=== PATIENT | female | born 1980 | race Caucasian/White ===

== ENCOUNTER 2016-12-29 20:40 | Emergency (ER) | payer OTHER ==
[2016-12-29 20:46] VITALS: BP 133/91
[2016-12-29] MEDS ORDERED: HYDROcod/ACET 5/325 Prepack 6 PO STA (20:58)
[2016-12-29] MEDS ORDERED: AMOX/CLAV 875 MG/125 MG TABLET PO STA (20:58)
[2016-12-29] MEDS ORDERED: AMOX/CLAV 875 MG/125 MG TABLET PO ONE (21:01)
[2016-12-29] MEDS ORDERED: HYDROcod/ACET 5/325 Prepack 6 PO ONE (21:01)
--- NOTE | 2016-12-29 21:42 | ED Physician Documentation ---
PD HPI HEENT - Stated complaint Stated Complaint: FACE PX - Chief complaint Chief Complaint: Heent - History obtained from History obtained from: Patient - History of Present Illness Timing - onset: How many days ago (2) Timing - duration: Days (2) Timing - details: Gradual onset, Waxing and waning Location: Sinuses (right-sided, points to maxillary area) Improves: Nothing. No: Medication (inadequate relief with ibuprofen) Worsens: Other (no apparent exacerbating factors) Associated symptoms: Congestion, Other (right facial pain). No: Fever, Cough Similar symptoms before: Other (similar to previous sinusitis, with some qualities in common with previous ear infections) Recently seen: Not recently seen - Additional information Additional information: c/o gradually worsening right facial pain radiating to right upper teeth, inadequate relief with ibuprofen. c/o sinus congestion Review of Systems Constitutional: denies: Fever, Chills, Sweats Ears: reports: Ear pain (right ear discomfort) Nose: reports: Congestion, Sinus pressure / pain. 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: No Does the pt have substance abuse?: No - Immunizations Immunizations are current?: Yes - POLST Patient has POLST: No PD ED PE NORMAL - Vitals Vital signs reviewed: Yes - General General: Alert and oriented X 3, No acute distress, Well developed/nourished - HEENT HEENT: PERRL, EOMI, Ears normal, Moist mucous membranes, Pharynx benign - Neck Neck: Supple, no meningeal sign PD ED PE EXPANDED - HEENT HEENT: Right maxillary sinus TTP Results - Vitals Vitals: Vital Signs - 24 hr 12/29/16 20:44 Temperature 36.2 C L Heart Rate 77 Respiratory 16 Rate Blood Pressure 133/91 H O2 Saturation 99 Oxygen O2 Source Room air PD MEDICAL DECISION MAKING - ED course Complexity details: considered differential, d/w patient Departure - Departure Disposition: Home, Self Care Clinical Impression: Sinusitis Qualifiers: Sinusitis location: maxillary Chronicity: acute Recurrence: not specified as recurrent Qualified Code(s): J01.00 - Acute maxillary sinusitis, unspecified Condition: Good Instructions: ED Hypertension Poss, ED Sinusitis Abx Tx Follow-Up: Amanda Lee DO [Primary Care Provider] - (3-5 days if not improving) Prescriptions: Amox/Clav 875/125 [Augmentin] 1 each PO Q12H 7 Days HYDROcod/ACETAM 5/325 [Far[place]ault 5/325] 1 - 2 ea PO Q6H PRN #15 tablet PRN Reason: Pain Discharge Date/Time: 12/29/16 21:17
== END 2016-12-29 21:17 | disposition home or self-care (01) ==
LOC: ED 20:40
DX: J01.00 Acute maxillary sinusitis, unspecified (principal)
CPT/HCPCS: 99283; A9270

== ENCOUNTER 2017-07-14 08:00 | Outpatient (CLI) | payer OTHER ==
[2017-07-14 18:57] LABS: BASOPHILS % (AUTO) 0.3 %; EOSINOPHILS # (AUTO) 0.2 10^3/uL (0.0-0.7); EOSINOPHILS % (AUTO) 1.7 %; HGB - HEMOGLOBIN 13.1 g/dL (12.0-16.0); LYMPHOCYTES # (AUTO) 2.6 10^3/uL (1.5-3.5); LYMPHOCYTES % (AUTO) 20.3 %; MEAN CORPUSCULAR HEMOGLOBIN 28.9 pg (27.0-31.0); MEAN CORPUSCULAR HGB CONC 33.2 g/dL (32.0-36.0); MEAN PLATELET VOLUME 8.1 fL (7.9-10.8); MONOCYTES # (AUTO) 0.7 10^3/uL (0.0-1.0); MONOCYTES % (AUTO) 5.1 %; NEUTROPHILS # (AUTO) 9.3 10^3/uL (1.5-6.6); NEUTROPHILS % (AUTO) 72.6 %; PLT - PLATELET COUNT 315 10^3/uL (130-450); RED BLOOD COUNT 4.52 10^6/uL (4.20-5.40); RED CELL DISTRIBUTION WIDTH 13.6 % (12.0-15.0); WHITE BLOOD COUNT 12.8 x10^3/uL (4.8-10.8)
[2017-07-14 19:09] LABS: BILIRUBIN,URINE NEGATIVE (NEGATIVE); GLUCOSE, URINE (UA) NEGATIVE (NEGATIVE); KETONES,URINE (UA) NEGATIVE (NEGATIVE); LEUKOCYTE ESTERASE, URINE NEGATIVE (NEGATIVE); NITRITE,URINE NEGATIVE (NEGATIVE); OCCULT BLOOD,URINE NEGATIVE (NEGATIVE); PROTEIN,URINE NEGATIVE (NEGATIVE); UROBILINOGEN,URINE 0.2 (NORMAL) E.U./dL (NORMAL)
[2017-07-14 19:13] LABS: BACTERIA,URINE Rare /HPF (None Seen); CLARITY,URINE CLEAR (CLEAR); RBC,URINE 0-5 /HPF (0-5); SQUAMOUS EPITHELIAL CELL,UR FEW Squamous (<= Few)
== END 2017-07-14 08:01 | disposition home or self-care (01) ==
LOC: LAB.N 08:00
PROVIDERS: ATTEND Obstetrics & Gynecology
DX: N92.1 Excessive and frequent menstruation with irregular cycle (principal); Z11.3 Encounter for screening for infections with a predominantly sexual mode of transmission
CPT/HCPCS: 36415; 81001; 85025; 85651; 87491; 87591

== ENCOUNTER 2017-07-14 08:00 | Outpatient (CLI) | payer OTHER | END 2017-07-14 08:01 | disposition home or self-care (01) | LOC: LAB.R 08:00 | PROVIDERS: ATTEND Obstetrics & Gynecology | DX: Z11.3 Encounter for screening for infections with a predominantly sexual mode of transmission (principal) | CPT/HCPCS: 87491; 87591 ==

== ENCOUNTER 2017-07-18 12:07 | Outpatient (CLI) | payer OTHER ==
--- NOTE | 2017-07-18 15:01 | Ultrasound Report ---
DATE OF SERVICE: 07/18/2017 PELVIC ULTRASOUND: 07/18/2017 CLINICAL INDICATION: Pain. TECHNIQUE: Transabdominal pelvic ultrasound performed for global evaluation. Transvaginal pelvic ultrasound performed for detailed evaluation. Real-time scanning performed and static images obtained. FINDINGS: The uterus is anteverted, measuring 7.7 x 4.9 x 4.0 cm. The endometrial echo complex measures 6 mm. There is an anterior intramural leiomyoma, measuring 3.4 x 3.0 x 2.8 cm. The right ovary measures 2.8 x 1.9 x 1.9 cm, and is unremarkable. The left ovary measures 3.9 x 2.6 x 2.0 cm, and contains a follicle. A small amount of free fluid is present. IMPRESSION: INTRAMURAL LEIOMYOMA, MEASURING 3.4 CM. TD: 07/18/2017 14:52
== END 2017-07-18 12:08 | disposition home or self-care (01) ==
LOC: DI 12:07
PROVIDERS: ATTEND Obstetrics & Gynecology
DX: D25.1 Intramural leiomyoma of uterus (principal)
CPT/HCPCS: 76830; 76856

== ENCOUNTER 2017-08-22 12:28 | Outpatient (CLI) | payer OTHER ==
[2017-08-22 13:11] LABS: BASOPHILS % (AUTO) 0.5 %; BILIRUBIN,URINE NEGATIVE (NEGATIVE); EOSINOPHILS # (AUTO) 0.2 10^3/uL (0.0-0.7); GLUCOSE, URINE (UA) NEGATIVE (NEGATIVE); HGB - HEMOGLOBIN 12.5 g/dL (12.0-16.0); KETONES,URINE (UA) NEGATIVE (NEGATIVE); LEUKOCYTE ESTERASE, URINE NEGATIVE (NEGATIVE); LYMPHOCYTES # (AUTO) 2.7 10^3/uL (1.5-3.5); LYMPHOCYTES % (AUTO) 28.3 %; MEAN CORPUSCULAR HEMOGLOBIN 28.3 pg (27.0-31.0); MEAN CORPUSCULAR HGB CONC 33.6 g/dL (32.0-36.0); MEAN CORPUSCULAR VOLUME 84.5 fL (81.0-99.0); MEAN PLATELET VOLUME 7.5 fL (7.9-10.8); MONOCYTES # (AUTO) 0.5 10^3/uL (0.0-1.0); NEUTROPHILS # (AUTO) 6.2 10^3/uL (1.5-6.6); NEUTROPHILS % (AUTO) 64.2 %; NITRITE,URINE NEGATIVE (NEGATIVE); OCCULT BLOOD,URINE LARGE (NEGATIVE); PH,URINE 6.5 PH (5.0-7.5); PLT - PLATELET COUNT 314 10^3/uL (130-450); PROTEIN,URINE NEGATIVE (NEGATIVE); RED BLOOD COUNT 4.41 10^6/uL (4.20-5.40); RED CELL DISTRIBUTION WIDTH 13.2 % (12.0-15.0); UROBILINOGEN,URINE 0.2 (NORMAL) E.U./dL (NORMAL); WHITE BLOOD COUNT 9.6 x10^3/uL (4.8-10.8)
[2017-08-22 13:14] LABS: CLARITY,URINE CLEAR (CLEAR); HCG UR QUAL NEGATIVE
== END 2017-08-22 12:29 | disposition home or self-care (01) ==
LOC: LAB 12:28
PROVIDERS: ATTEND Obstetrics & Gynecology
DX: Z01.812 Encounter for preprocedural laboratory examination (principal); D25.9 Leiomyoma of uterus, unspecified; N92.1 Excessive and frequent menstruation with irregular cycle
CPT/HCPCS: 36415; 81003; 81025; 85025; 86850; 86900; 86901

== ENCOUNTER 2017-08-24 09:52 | Inpatient (IN) | payer OTHER ==
--- NOTE | 2017-08-22 16:39 | PREOP HISTORY & PHYSICAL ---
DATE OF SERVICE: 08/22/2017 Physician: Joseph Alvares MD ANTICIPATED DATE OF PROCEDURE: 08/24/2017 DIAGNOSES 1. Lower quadrant, pelvic, and scar pain. 2. Uterine leiomyomata. 3. sections x3. INTENDED PROCEDURES 1. Total abdominal or subtotal abdominal hysterectomy. 2. Bilateral salpingectomy. 3. Possible oophorectomy or bilateral oophorectomy. 4. Excision & revision of C/S scars. 5. Possible placement of Braydon-Mathias drain. HISTORY OF PRESENT ILLNESS: The patient is a 36-year-old multigravida (history of 3 sections) who reports 4-5 months of intense lower abdominal and pelvic pain grade 7/10. It is bilateral and radiates into the pelvis. She reports q.28-day menses with severe dysmenorrhea. The pain intensifies with movement, particularly twisting movement, bowel movement, and sexual intercourse. She notes scar pain on movement. She has attempted nonsteroidals without any effect. Pain compromises the quality of her life in that she cannot lift anything, and her sex life has suffered. When she has intercourse, "it is like my hit something solid." For many months, she has taken Motrin 800 three times a day. Her primary care is concerned about the renal effects of high dose Motrin. Ultrasound reveals a 3.4 cm myoma. Ovaries are normal size and contain normal cystic activity. There is a complex endometrial echo of 6 mm. The patient has nausea with her pain, but this is not associated with eating. She also feels urinary urgency and bladder pain. She states she is always aware of her bladder. The patient is not on any contraception. She has had normal Pap smears throughout her adult life. Last Pap was in 10/2016. PAST MEDICAL HISTORY: Some history of depression and anxiety, treated with clonazepam. The depression was triggered by a family . PAST SURGICAL HISTORY: sections in 2007, 2009, and 2011. Laparoscopic cholecystectomy. ALLERGIES: NONE. MEDICATIONS: Motrin 800. FAMILY HISTORY: Breast cancer in paternal grandmother, cervical cancer in paternal aunt, diabetes in paternal grandmother, depression in mother, hypertension in numerous maternal relatives, and hypercholesterolemia. REVIEW OF SYMPTOMS CONSTITUTIONAL: Negative. HEMATOLOGIC: Negative. CARDIOVASCULAR: Negative. PULMONARY: Mild dyspnea on exertion. GASTROINTESTINAL: Negative except abdominal pain on bowel movement. GYNECOLOGIC: Negative. GENITOURINARY: Negative. MUSCULOSKELETAL: Back pain. DERMATOLOGIC: Negative. BREASTS: Negative. NEUROLOGIC: Negative. PSYCHOLOGIC: Anxiety and depression as noted before. SOCIAL HISTORY: , [place] . No drug, tobacco, or alcohol use. No history of abuse. College graduate. 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 PHYSICAL EXAMINATION GENERAL: Well groomed, pleasant. accompanied her. Obese. HEENT: Supple neck, no thyromegaly. Dentition in good repair. LUNGS: Clear to auscultation. CARDIOVASCULAR: Regular. No murmur, no gallop. BREASTS: Deferred. ABDOMEN: Obese, small pannus. No organomegaly. Mild suprapubic and lower quadrant tenderness without rebound. Bowel sounds normal. PELVIC: External genitalia normal. No BUS tenderness or atrophy. No lesions. Vagina: moist mucosa. No prolapse. No abnormal discharge. Cervix: cervical motion tenderness. Cervix and uterus fixed to the anterior abdominal wall and scar. Movement creates pain in the scar. Uterus: enlarged 6 to 8-week size, tender, lobulated. Adnexa unable to appreciate well because of obesity and pain. LYMPHATICS: Inguinal nodes not enlarged. MUSCULOSKELETAL: Normal range of motion. No degenerative joint changes. SKIN: Smooth and clear. NEUROLOGIC: No neurologic anomalies. PSYCHOLOGIC: Does not appear to be anxious or depressed. Talkative, pleasant. STUDIES: Admission labs pending. Prior labs showed leukocytosis and elevated sedimentation rate. ASSESSMENT: The patient reports significant pain complaints and uterine tenderness and fixation to the abdominal wall. Uterine leiomyoma are present. Uncertain if there are not sequestered areas of infection. Laparoscopic hysterectomy poses significant danger of bowel injury on entry based on physical examination and history. Total abdominal hysterectomy may be the safest approach. If the cul-de-sac is clear, the patient would desire subtotal hysterectomy if possible. Subtotal may need to be accomplished due to frozen pelvis. Uncertain of the status of the ovaries. Another major component of her pain is the abdominal scar. Removal of the prior section scars is necessary. The patient was cautioned that this is not a cosmetic procedure and if she desires cosmetic procedure she should consult a plastic surgeon. PLAN: I reviewed the risks and benefits of surgery with the patient. The patient understands possibility of bleeding, transfusion, infection, and damage to viscera such as urinary tract and intestines. She understands that there is no guarantee of complete resolution of her pain and in some cases pain can actually increase. We discussed revision of the abdominal wall scar, and she understands this is not a cosmetic procedure. Informed consent paperwork was completed. All questions were answered. TD: 08/22/2017 12:53 ALEX
[~2017-08-24 09:52] MED LIST: LACTATED RINGERS 1,000 ML IV ONE; ceFAZolin 2 GM/50 ML 2 GM/50 ML BAG IV ONE
--- NOTE | 2017-08-24 10:01 | OPERATIVE REPORT ---
Operative Report - General Admit Date: 08/24/17 Planned Procedure: Abdominal hysterectomy; bilateral salpingectomy; possible oophorectomy; joanna Pre-Op Diagnosis: Pelvic pain; bilateral lower quadrant pain; scar pain cyst; fibroid; CS x3 Procedure Performed: ; Abdominal hysterectomy (subtotal); bilateral salpingectomy; excision and revision of scar; Cystoscopy Post Op Diagnosis: Extensive and dense adhesions fixing the uterus to the abdominal wall; awai - Procedure Note Primary Surgeon: Joseph Alvares MD, FACOG, FICS Secondary Surgeon: Zainab Carter DO, FACOG; Joseph Alfaro MD FACOG Anesthesia Provider: Arti Benites, certified nurse filament maker Anesthesia Technique: General ET tube Pathology: Uterus and tubes IV Fluids (mL): 2,000 Estimated Blood Loss (mL): 100 Urine Output (mL): 150 Drain/Tube Type: Other (Wound VAC) Complications: None
[2017-08-24] MEDS ORDERED: ZOLPIDEM 5 MG TABLET PO PRN (10:03)
[2017-08-24] MEDS ORDERED: HYDROmorphone 1 MG/ML SYRINGE IVP PRN (10:03)
[2017-08-24] MEDS ORDERED: ONDANSETRON 4 MG/2 ML VIAL IVP PRN (10:03)
[2017-08-24] MEDS ORDERED: LORazepam 2 MG/ML VIAL IVP PRN (10:03)
[2017-08-24] MEDS ORDERED: BUPIVACAINE 0.5%-EPI 1:200000 PF 10 ML VIAL ONE ×2 (10:38→12:04)
[2017-08-24] MEDS ORDERED: BUPIVACAINE 0.5%-EPI 1:200000 PF 30 ML VIAL SUBQ ONE ×2 (11:01)
[2017-08-24] MEDS ORDERED: LACTATED RINGERS 1,000 ML IV ONE ×2 (11:25→13:00)
[2017-08-24] MEDS ORDERED: GENTAMICIN 80 MG/2 ML VIAL IM ONE (11:55)
[2017-08-24] MEDS ORDERED: SODIUM CHLORIDE 0.9% 1,000 ML IV ONE (12:00)
[2017-08-24] MEDS ORDERED: GENTAMICIN 80 MG/2 ML VIAL ONE (12:02)
[2017-08-24] MEDS: fentaNYL 100 MCG/2 ML VIAL ONE ×2 (12:50→13:00)
[2017-08-24] MEDS: HYDROmorphone 1 MG/ML SYRINGE ONE ×2 (13:08→13:18)
[2017-08-24] MEDS ORDERED: HYDROmorphone 1 MG/ML SYRINGE ONE (13:32)
[2017-08-24] MEDS: LACTATED RINGERS 1,000 ML IV SCH ×2 (14:08→20:22)
[2017-08-24] MEDS ORDERED: SODIUM CHLORIDE FLUSH 0.9% 10 ML SYRINGE ONE (14:08)
[2017-08-24] MEDS: KETOROLAC 30 MG/ML VIAL IVP SCH ×2 (14:10→20:21)
[2017-08-24] MEDS: SIMETHICONE CHEW 80 MG TABLET PO SCH ×2 (14:10→20:22)
--- NOTE | 2017-08-24 15:19 | OPERATIVE REPORT ---
DATE OF SERVICE: 08/24/2017 Physician: Joseph Alvares MD PREOPERATIVE DIAGNOSES 1. Bilateral lower quadrant pain, predominantly left-sided. 2. Pelvic pain with abdominal wall/scar pain. 3. Fibroid on ultrasound. 4. sections x3. 5. Obesity. POSTOPERATIVE DIAGNOSES 1. Extensive and dense adhesions fixing the uterus, bladder flap to the abdominal wall. 2. Adhesion band seen within the bladder. 3. Obesity. NAME OF PROCEDURE: Abdominal hysterectomy (subtotal); bilateral salpingectomy; extensive dissection/adhesiolysis; excision and revision of abdominal wall scar, cystoscopy. SURGEON: Joseph Alvares MD, FACOG, FICS ANESTHESIA: General with ET tube placed. DESIGN ENGINEERING TECHNICIAN: Zainab Hein DO, FACOG SECOND ASSIST: Joseph Alfaro MD, FACOG ANESTHESIOLOGIST: Arti Benites, Certified Nurse Stone Rubber ESTIMATED BLOOD LOSS: 100. COMPLICATIONS: None. INTRAVENOUS FLUIDS: 2000 mL crystalloid. URINE OUTPUT: 150, Richardson in place. DRAINS 1. Richardson catheter. 2. Wound VAC. FINDINGS: Exam under anesthesia finds the uterus to be fixed to the anterior abdominal wall and sharply anteverted, anteflexed. Exam is consistent with the preoperative office evaluation. At laparotomy, the uterus is normal size and is densely adherent to the abdominal wall, scarication extending into the prior transverse laparotomy scars. The a collection of dense scarred tissue may correspond to the fibroid seen on ultrasound. The ovaries appear to be normal with cystic activity. This tubes seem to be encased in adhesions and closed. There are additionally dense bladder flap adhesions. Postoperative cystoscopy showed both ureters to be patent. There was a band of scar tissue on tension in the left upper corner of the bladder. Careful inspection did not reveal any incursion into the bladder or stitches. Exam of the abdominal wall finds a dense collection of scar tissue under the prior Pfannenstiel incisions. This is firmly affixed to the abdominal wall and in turn to portions of the uterus. TECHNIQUE: Prior to the surgery, I met the patient and her , reviewed the indications, findings during office and ultrasound exam, as well as our goals for the surgery. She is aware of the possibility of blood loss, transfusion, postoperative infection; and damage to bowel, bladder and urinary collecting system. She understands that there is no guarantee of pain relief. Informed consent was given. She also understands that the scar revision is not a cosmetic procedure. The patient was brought to the operating room and placed in the supine position on the operating table. She was uneventfully induced and intubated. She was prepped and draped in the customary sterile fashion including Richardson catheter. Timeout briefing was done per protocol. Anatomic landmarks were marked with a marking pen and the limits of the scar tissue palpated for incision. The prior Pfannenstiel scars were then excised with an elliptical skin incision. The incision was carried down to the fascial layer and the block of dense scar tissue removed. Next, the abdominal fascia was opened in a transverse manner uneventfully. During opening, it became apparent that the prior scar had coalesced and contained the fundus of the uterus. Using careful sharp dissection and judicious use of electrocautery, the uterus was mobilized. Care was taken to develop the anterior bladder flap, which also was scarified. The tubes were then placed on tension, and the mesenteric surfaces desiccated and divided with LigaSure. Next, the uteroovarian ligaments were desiccated and divided with LigaSure. Round ligaments were also desiccated and divided with LigaSure on each side. Using LigaSure and sharp dissection, we advanced down the lateral portion of the uterine body until encountering the uterine vessels. The uterine vessels were doubly desiccated and divided with LigaSure. At this point, the cervix was circumscribed just below the isthmus and the uterus removed in toto. The cervical barrel was closed with an interlocked stitch of 0 Vicryl. There was extensive denuded peritoneum from the previous dissection. The top of the vaginal stump was re-peritonealized with 2-0 Vicryl. Septra adhesion barrier was placed. The abdomen was doubly lavaged with warm normal saline and we confirmed that there were no bleeding vessels. Closure was begun with re-peritoneal stitch of 2-0 chromic. The rectus muscles were tacked back together in the midline with 0 Vicryl. Fascia was closed in 2 parts with a running stitch of 0 Vicryl. The subcutaneous void was closed with multiple interrupted stitches of 0 chromic. The subcutaneous tissue beneath the skin was closed with a running subcutaneous stitch of 2-0 Vicryl. Skin was closed with a subcuticular stitch of 4-0 Monocryl and a wound VAC was placed. The lateral margins of the wound were not covered by wound VAC and were dressed with Dermabond. Next, attention was turned to cystoscopy. Cystoscopic examination of the bladder found normal working ureters; however, in the left upper corner there was a band of adhesion tissue. This was probed and confirmed that there were no hidden sutures. Richardson was then replaced. The patient was uneventfully awakened from general anesthesia and taken to the recovery room in good condition. All sponge, needle and instrument counts were confirmed correct. TD: 08/24/2017 15:18 ALEX
[2017-08-24] MEDS: oxyCODONE 5 MG TABLET PO PRN ×2 (16:10→22:30)
[2017-08-24] MEDS: DOCUSATE SODIUM 100 MG CAPSULE PO SCH (20:22)
[2017-08-25] MEDS: KETOROLAC 30 MG/ML VIAL IVP SCH ×4 (01:48→20:31)
[2017-08-25] MEDS: oxyCODONE 5 MG TABLET PO PRN ×3 (02:37→15:45)
[2017-08-25] MEDS: SIMETHICONE CHEW 80 MG TABLET PO SCH ×3 (05:44→20:31)
[2017-08-25] MEDS: LACTATED RINGERS 1,000 ML IV SCH ×2 (06:13→17:19)
[2017-08-25 06:15] LABS: BASOPHILS # (AUTO) 0.1 10^3/uL (0.0-0.1); BASOPHILS % (AUTO) 0.4 %; EOSINOPHILS % (AUTO) 0.1 %; HGB - HEMOGLOBIN 10.2 g/dL (12.0-16.0); MEAN CORPUSCULAR HEMOGLOBIN 27.9 pg (27.0-31.0); MEAN CORPUSCULAR HGB CONC 32.8 g/dL (32.0-36.0); MEAN PLATELET VOLUME 7.4 fL (7.9-10.8); MONOCYTES # (AUTO) 1.2 10^3/uL (0.0-1.0); MONOCYTES % (AUTO) 7.4 %; NEUTROPHILS # (AUTO) 13.5 10^3/uL (1.5-6.6); NEUTROPHILS % (AUTO) 80.1 %; PLT - PLATELET COUNT 311 10^3/uL (130-450); RED BLOOD COUNT 3.65 10^6/uL (4.20-5.40); WHITE BLOOD COUNT 16.9 x10^3/uL (4.8-10.8)
[2017-08-25] MEDS: DOCUSATE SODIUM 100 MG CAPSULE PO SCH ×2 (08:56→20:31)
[2017-08-25] MEDS ORDERED: SODIUM CHLORIDE FLUSH 0.9% 10 ML SYRINGE ONE ×3 (08:59→20:37)
[2017-08-25] MEDS: ceFAZolin 2 GM in SODIUM CHLORIDE 0.9% MINIBAG 100 ML IV SCH ×2 (08:59→17:20)
--- NOTE | 2017-08-25 09:12 | PROVIDER PROGRESS NOTE ---
Subjective - General Admit Date: 08/24/17 Procedure Date: 08/24/17 Post Op Days: 1 Procedure Performed: Abdominal hysterectomy, subtotal; bilateral salpingectomy; lysis of extensi - Review of Systems Wound/Incisions: positive: Healing well, Other (Wound VAC intact; no erythema or evidence of seroma.) Drain Type: Richardson General: positive: No symptoms, Fatigue HEENT: positive: No symptoms Pulmonary: positive: No symptoms, Other (Using incentive spirometer) Cardiovascular: positive: No symptoms Gastrointestinal: positive: No symptoms, Flatus Genitourinary: positive: No symptoms Musculoskeletal: positive: No symptoms Skin: positive: No symptoms Psychiatric: positive: No symptoms Objective - Patient Data Vital Signs: Vital Signs x48h Temp Pulse Resp BP Pulse Ox 08/25/17 08:31 98.1 F 86 20 117/72 97 08/25/17 05:02 98.1 F 95 18 116/72 97 08/25/17 01:52 99.1 F 110 H 18 107/70 96 Weight: Weight 08/23/17 08/24/17 08/25/17 23:59 23:59 23:59 Weight (kg) 83.3 kg Intake & Output: Intake and Output Totals x24h 08/23/17 08/24/17 08/25/17 23:59 23:59 23:59 Intake Total 250 1485 Output Total 725 3050 Balance -475 -1565 - Lab Results Lab Results: 08/25/17 06:03 Other Lab Results: Lab Results x24hrs 08/25/17 Range/Units 06:03 WBC 16.9 H (4.8-10.8) x10^3/uL RBC 3.65 L (4.20-5.40) 10^6/uL Hgb 10.2 L (12.0-16.0) g/dL Hct 31.0 L (37.0-47.0) % MCV 85.0 (81.0-99.0) fL MCH 27.9 (27.0-31.0) pg MCHC 32.8 (32.0-36.0) g/dL RDW 13.0 (12.0-15.0) % Plt Count 311 (130-450) 10^3/uL MPV 7.4 L (7.9-10.8) fL Neut # 13.5 H (1.5-6.6) 10^3/uL Lymph # 2.0 (1.5-3.5) 10^3/uL [place] # 1.2 H (0.0-1.0) 10^3/uL Eos # 0.0 (0.0-0.7) 10^3/uL Baso # 0.1 (0.0-0.1) 10^3/uL Absolute Nucleated RBC 0.01 x10^3/uL Nucleated RBC % 0.0 /100WBC - Current Medications Current Medications: Current Medications Generic Name Dose Route Start Last Admin Trade Name Freq PRN Reason Stop Dose Admin Docusate Sodium 100 mg 08/24/17 21:00 08/25/17 08:56 Colace 100mg Capsule PO 100 mg BID ELLIOTT Administration Lactated Ringer's 1,000 mls @ 100 mls/hr 08/24/17 11:00 08/25/17 06:13 Lr IV 100 mls/hr .Q10H ELLIOTT Administration Cefazolin Sodium 2 gm/ Sodium 100 mls @ 200 mls/hr 08/25/17 09:00 08/25/17 08 :59 Chloride IV 200 mls/hr Q8H ELLIOTT Administration Ketorolac Tromethamine 30 mg 08/24/17 11:00 08/25/17 08:57 Toradol Inj IVP 08/29/17 10:59 30 mg Q6H ELLIOTT Administration Ondansetron HCl 4 mg 08/24/17 10:03 08/24/17 17:12 Zofran Inj IVP 4 mg Q4HR PRN Administration Nausea / Vomiting Oxycodone HCl 5 mg 08/24/17 10:03 08/25/17 08:56 Roxicodone PO 5 mg Q4HR PRN Administration PAIN Simethicone 80 mg 08/24/17 14:00 08/25/17 05:44 Mylicon PO 80 mg TID ELLIOTT Administration Assessment/Plan - Assessment/Plan Assessment: Patient is recovering from her surgery well. She has mild anemia hemoglobin 10.2 which is well tolerated. On preop white count was elevated and it is elevated again today. As a precaution Ancef restarted. Suspect that within the extensive adhesions there was a nidus of bacteria that caused the dense adhesions. With dissection, again these bacteria may be present. Plan: Today's plan. * Discontinue Richardson and IV fluids. * Restart Ancef 2 g every 8 hours. * Daily wound wash with shower using Hibiclens but taking care not to disrupt wound VAC. * Encourage ambulation.
[2017-08-25] MEDS ORDERED: ONDANSETRON 4 MG/2 ML VIAL IVP ONE (10:50)
[2017-08-25] MEDS ORDERED: EPINEPHrine 1 MG/ML AMP IVP ONE (10:50)
[2017-08-25] MEDS ORDERED: DEXAMETHASONE 4 MG/ML VIAL IVP ONE (10:50)
[2017-08-25] MEDS ORDERED: ACETAMINOPHEN 1,000 MG/100 ML 100 ML IV ONE (10:50)
[2017-08-25] MEDS ORDERED: MIDAZOLAM 2 MG/2 ML VIAL IVP ONE (10:50)
[2017-08-25] MEDS ORDERED: LIDOCAINE-MPF 2% 5 ML VIAL IM ONE (10:50)
[2017-08-25] MEDS ORDERED: fentaNYL 250 MCG/5 ML VIAL IVP ONE (10:50)
[2017-08-25] MEDS ORDERED: SUCCINYLCHOLINE 200 MG/10 ML VIAL IVP ONE (10:50)
[2017-08-25] MEDS ORDERED: ROCURONIUM 50 MG/5 ML VIAL IVP ONE (10:50)
[2017-08-25] MEDS ORDERED: PROPOFOL 200 MG/20 ML VIAL IVP ONE (10:50)
[2017-08-26] MEDS: oxyCODONE 5 MG TABLET PO PRN ×3 (00:22→09:49)
[2017-08-26] MEDS: ceFAZolin 2 GM in SODIUM CHLORIDE 0.9% MINIBAG 100 ML IV SCH ×2 (01:06→09:36)
[2017-08-26] MEDS: KETOROLAC 30 MG/ML VIAL IVP SCH ×2 (02:09→09:32)
[2017-08-26] MEDS: SIMETHICONE CHEW 80 MG TABLET PO SCH (05:22)
[2017-08-26] MEDS: LACTATED RINGERS 1,000 ML IV SCH (05:22)
--- NOTE | 2017-08-26 08:39 | Discharge Plan ---
Discharge Plan Disposition: 01 Home, Self Care Condition: Good Diet: Regular (High fiber with increased iron) Activity Restrictions: Activity as Tolerated Shower Restrictions: No (Encouraged daily wound wash on exposed portions using Hibiclens) Driving Restrictions: Yes (No driving while taking narcotic pain medications) Weight Bearing: Full Weight Instruction Topics: Closure Wound Vacuum Assisted No Smoking: If you smoke, Please STOP! Call for help. Follow-up with: Amanda Lee DO [Primary Care Provider] - Joseph Alvares MD [Provider Admit Priv/Credential] -
--- NOTE | 2017-08-26 09:22 | DISCHARGE SUMMARY ---
Physician: Joseph Alvares MD DATE OF ADMISSION: 08/24/2017 DATE OF DISCHARGE: 08/26/2017 DIAGNOSES 1. Extensive and dense adhesions involving uterus, anterior abdominal wall, and bladder. 2. Resultant bilateral lower quadrant, predominantly left; pelvic and scar pain. 3. Uterine leiomyomata documented on ultrasound. 4. sections x3. PROCEDURE 1. Abdominal hysterectomy (subtotal). 2. Bilateral salpingectomies. 3. Lysis of extensive and dense scars. 4. Excision and revision of prior section scars. 5. Cystoscopy. COMPLICATIONS: None. HISTORY: The patient is a 36-year-old, multigravida who reports 5 months of intense lower abdominal and pelvic pain, a grade 7/10. It is bilateral and radiates into the pelvis. Additionally, she notes intense pain radiating into the scar with twisting bowel movements and sexual intercourse. Ultrasound reveals a 3.4 cm myoma. Medically, she is healthy. Physical exam finds a fixed uterus and a block of scar tissue extending from the pelvis onto the anterior abdominal wall. Reference typewritten H and P. The patient was admitted on the and a subtotal hysterectomy was accomplished with a bilateral salpingectomy, and lysis of dense and extensive scar tissue. Reference operative report. Procedure was without complication with a total blood loss of 100. Wound VAC was applied. The patient went to the recovery room in good condition. Postoperatively, she gradually advanced to full diet and activity. Pain control was maintained with Toradol and periodic hydrocodone. Late in postoperative day #1, she had a bowel movement. She was able to do self-care activities. Postop hemoglobin was 10.2 and white count was 16.9. There is no fever or signs of infection. The patient was given preoperative Ancef and received 3 more doses postop. By postoperative day 2, the patient was capable of self-care activities. Pain was in control and she desired discharge. Wound was maturing well with a wound VAC in place. The patient was given wound care instructions that included washes with Hibiclens. FOLLOWUP: The patient will be seen on Tuesday for removal of wound VAC. A wound check will be done at that time. DISCHARGE MEDICATIONS 1. Motrin 600 q.6 hours. 2. Blanco 325/5 one to 2 q.4 hours p.r.n. breakthrough pain. 3. Colace 250 oral b.i.d. 4. Multivitamin with iron. TD: 08/26/2017 09:21
[2017-08-26 09:40] VITALS: BP 120/73
[2017-08-26] MEDS: DOCUSATE SODIUM 100 MG CAPSULE PO SCH (09:49)
== END 2017-08-26 11:00 | disposition home or self-care (01) | DRG 743 ==
LOC: MS3 09:52 → MS2 11:46
PROVIDERS: ADMIT Obstetrics & Gynecology; ATTEND Obstetrics & Gynecology
PROC: 0UT70ZZ Resection of Bilateral Fallopian Tubes, Open Approach (ICD-10-PCS; 2017-08-24)
PROC: 0UN70ZZ Release Bilateral Fallopian Tubes, Open Approach (ICD-10-PCS; 2017-08-24)
PROC: 0DNW0ZZ Release Peritoneum, Open Approach (ICD-10-PCS; 2017-08-24)
PROC: 0UT90ZL Resection of Uterus, Supracervical, Open Approach (ICD-10-PCS; principal; 2017-08-24 11:00)
DX: N73.6 Female pelvic peritoneal adhesions (postinfective) (principal); D25.9 Leiomyoma of uterus, unspecified; N85.8 Other specified noninflammatory disorders of uterus; N94.6 Dysmenorrhea, unspecified; E66.9 Obesity, unspecified; D64.9 Anemia, unspecified; N32.89 Other specified disorders of bladder; Z79.1 Long term (current) use of non-steroidal anti-inflammatories (NSAID); Z90.49 Acquired absence of other specified parts of digestive tract; Z68.35 Body mass index [BMI] 35.0-35.9, adult; Z86.59 Personal history of other mental and behavioral disorders
CPT/HCPCS: 36415; 85025

== ENCOUNTER 2017-12-01 08:00 | Outpatient (CLI) | END 2017-12-01 08:01 | disposition home or self-care (01) ==

== ENCOUNTER 2017-12-01 14:47 | Outpatient (CLI) | END 2017-12-01 14:48 | disposition home or self-care (01) ==